=== PATIENT | female | born 1940 | race Caucasian/White ===

== ENCOUNTER 2018-05-26 09:21 | Outpatient (CLI) | payer MEDICARE, OTHER ==
--- NOTE | 2018-05-26 11:23 | RAD ---
CHEST 2 VIEWS: Date: 05/26/18 HISTORY: Hemoptysis. Bloody cough. FINDINGS: Several nodular foci are noted in the superior segment of the right lower lobe, overlying the right h ilar region. These have more the appearance of a mass or masses rather than pneumonia. Follow-up ches t CT scan with IV contrast is recommended. Heart size is normal. Mild biapical pleural thickening. Th e left lung is clear. No pleural effusion. IMPRESSION: Several nodular opacities overlying the right hilum, probably in the superior segment of the right lo wer lobe, concerning for mass/masses or nodules. Follow-up chest CT scan with IV contrast is recommen ded. CODE T. POS: [facility]
== END 2018-05-26 09:22 | disposition home or self-care (01) ==
LOC: BICRAD 09:21
PROVIDERS: ATTEND Specialist
DX: R04.2 Hemoptysis (principal); R91.8 Other nonspecific abnormal finding of lung field
CPT/HCPCS: 71046